=== PATIENT | male | born 1985 | race Hispanic/Latino ===

== ENCOUNTER 2025-05-25 17:42 | Emergency (ER) | payer OTHER ==
[~2025-05-25] VITALS: Ht 175.3 cm; Wt 83.9 kg
[2025-05-25 18:00] VITALS: BP 118/77; PULSE 88; RESP 18; TEMP 97.6; O2SAT 99
--- NOTE | 2025-05-25 18:32 | ERN ---
ED Note History of Present Illness Stated Complaint: HIGH BLOOD SUGAR Chief Complaint: Hyperglycemia Time Seen by MD: 17:56 Time Seen by Midlevel: 17:57 Dictation: 40-year-old male who presents to the emergency department due to reported having an elevated blood glucose level. He states that he is trying to go back to work from an unemployment status requiring a TSH, lipid panel in the glycohemoglobin which is required by tomorrow. Currently, he states that he has no complaints or discomforts. He says that he is just here due to requirement from the employment for medical clearance. Upon initial evaluation, the patient presents in no acute distress. Allergies: Coded Allergies: No Known Drug Allergies (Unverified Allergy, Unknown, 05/25/25) Emergency Care EP TECHNOLOGIST: None Past Medical History Past Medical History: Diabetes-Type II Surgical History: None RN Note Reviewed/Agreed w/PFSH: Yes Review of System Dictation Constitutional: Negative for fever,chills, and weight loss Eyes: Negative for injury, pain,redness, and discharge ENT: Negative for injury,pain or swelling Cardiovascular: Negative for chest pain, palpitations, and edema Respiratory: Negative for shortness of breath, cough, and wheezing, Abdomen/GI: Negative for abdominal pain, nausea, vomiting, diarrhea, and constipation Back: Negative for injury and pain : Negative for injury, bleeding and discharge MS/Extremity: Negative for injury and deformity Skin: Negative for rash, and discoloration Neuro: Negative for headache, weakness, numbness, tingling, and seizure Psych: Negative for suicide ideation, homicidal ideation, and hallucinations Initial Vital Sign VS Vital Signs Date Time Temp Pulse Resp B/P (MAP) Pulse Ox O2 Delivery O2 Flow Rate FiO2 05/25/25 17:50 97.5 88 18 118/77 99 Room Air 0 05/25/25 18:00 21 Physical Exam Dictation General: awake, alert, NAD Head/Face: Normocephalic, atraumatic Eyes: PERRL, EOMI ENT: Oral mucosa moist Neck: Trachea midline, supple Cardiovascular: RRR, no edema Respiratory: Symmetrical, non-labored Abdomen: Soft, non-tender, non-distended, no guarding. Skin: Warm, dry, good turgor, no rash MS/Extremity: Pulses equal, no cyanosis, neurovascular intact, FROM Neuro: COAx4, GCS 15, steady gait, Psych: Normal behavior, mood, and affect normal Results (Laboratory/Radiology) Laboratory/Radiology Laboratory Tests Test 05/25/25 17:49 Whole Blood Glucose 372 MG/DL (70-110) H Labs Reviewed?: Yes ED Course ED Course Vital Signs Date Time Temp Pulse Resp B/P (MAP) Pulse Ox O2 Delivery O2 Flow Rate FiO2 05/25/25 18:00 97.5 88 18 118/77 99 Room Air* 0 21 05/25/25 17:50 97.5 88 18 118/77 99 Room Air 0 Medical Decision Making MDM MDM: Differential diagnosis: Diabetes with hyperglycemia, medical screening examination. Rationale: Tests considered and ordered secondary to shared decision making include: Previous outside records reviewed: Old ER visits. Risk of complication and/or morbidity or mortality of patient management: None Medications-Per medication reconciliation Need for hospitalization: Patient does not meet criteria for hospitalization. Need for emergency major/minor surgery: No There are no social concerns with this patient. Prescription drug management Prescriptions will include symptomatic care Patient's prior external medical records from other ER visits were reviewed by me as indicated. Prior testing and results from previous visits were reviewed. Prior tests were taken into account with medical decision making and resource utilization, independent historian/historians were used to obtain complete medic al history. I independently interpreted the test that were performed, results were reviewed by me and considered findings on radiology if ordered. Medical management and examination interpretation discussions were had by me with other qualified healthcare professionals as indicated for the patient's care. DX & DISP Disposition: AMA Departure Impression: Primary Impression: Diabetes mellitus with hyperglycemia Condition: Stable Referrals: SELF,REFERRAL (PCP) Time of Disposition: 18:32 KAYODE BANUELOS May 25, 2025 18:32
== END 2025-05-25 18:41 | disposition left against medical advice (07) ==
LOC: EDH 17:42
DX: E11.65 Type 2 diabetes mellitus with hyperglycemia (principal)
CPT/HCPCS: 82948; 99282